=== PATIENT | female | born 1965 | race Hispanic/Latino ===

== ENCOUNTER → 2019-02-08 | Outpatient (CLI) | payer MEDICARE | END | disposition home or self-care (01) | LOC: SHCH 09:10 | PROVIDERS: ATTEND Internal Medicine Cardiovascular Disease | DX: I08.1 Rheumatic disorders of both mitral and tricuspid valves (principal) | CPT/HCPCS: 93306 ==

== ENCOUNTER → 2019-02-27 | Outpatient (CLI) | payer MEDICARE ==
[~2019-02-27] VITALS: Ht 157.5 cm; Wt 75.7 kg
[~2019-02-27] MED LIST: ALBU8.5H8 IH; ASPI-555 PO; ATOR40TA71 PO; BUME1TAB6 PO; CALC-866 PO; CLOP75TA32 PO; ESOM40CA PO; FLUO20TA29 PO; GABA-529 PO; INSU100I3 SQ; INSU100V12 SQ; LOSA25TA41 PO; METO2.5T2 PO; METO25TA6 PO; REGADENOSON 0.4 MG/5 ML PF SYG IVP SCH; TRAM50TA4 PO
== END | disposition home or self-care (01) ==
LOC: SHCH 07:45
PROVIDERS: ATTEND Internal Medicine Cardiovascular Disease
DX: R94.39 Abnormal result of other cardiovascular function study (principal); I25.5 Ischemic cardiomyopathy
CPT/HCPCS: 78481; A9512

== ENCOUNTER 2019-03-23 10:47 | Observation (INO) | payer MEDICARE ==
[2019-03-21 11:31] LABS: BASOPHILS % (AUTO) 0.5 % (0.0-5.0); EOSINOPHILS % (AUTO) 0.2 % (0.0-8.0); LYMPHOCYTES % (AUTO) 25.6 % (21.0-51.0); MEAN CORPUSCULAR HEMOGLOBIN 30.6 pg (27.0-33.0); MEAN CORPUSCULAR HGB CONC 33.6 g/dL (32.0-36.0); MEAN CORPUSCULAR VOLUME 91.2 fL (79-99); MONOCYTES % (AUTO) 7.3 % (3.0-13.0); NEUTROPHILS % (AUTO) 66.4 % (40.0-77.0); PLATELET COUNT (AUTO) 246 K/uL (130-400); RED BLOOD CELL COUNT(AUTO) 3.84 MIL/uL (4.00-5.50); RED CELL DISTRIBUTION WIDTH 13.4 % (11.0-15.5); WHITE BLOOD COUNT (AUTO) 4.7 K/uL (4.8-10.8)
[2019-03-21 11:34] VITALS: BP 141/82
[2019-03-21 11:59] LABS: POTASSIUM 4.7 mmol/L (3.5-5.1)
[2019-03-21 12:00] LABS: INR 1.07 (0.85-1.15); PROTHROMBIN TIME 11.2 SEC (9.6-11.6)
[2019-03-21 12:11] LABS: CREATININE 1.9 mg/dL (0.5-1.5)
--- NOTE | 2019-03-21 12:24 | NUR ---
GLUCOSE INFORMED AMI RODRIGUEZ OF PTS GLUCOSE OF 464. SHE WILL INFORM DR. DAN.
--- NOTE | 2019-03-22 09:53 | NUR ---
labs informed ling hopper of abnormal bun/crea. she will inform dr. rock. as per glucose yesterday, just recheck glucose fasting on am of procedure
[~2019-03-23] VITALS: Ht 154.9 cm; Wt 71.2 kg
[2019-03-23] VITALS (8 sets, daily range): BP systolic 91–129; BP diastolic 55–82
[~2019-03-23 10:47] MED LIST changes: +CEFAZOLIN SODIUM 1 GM VIAL IVP SCH; -REGADENOSON 0.4 MG/5 ML PF SYG IVP SCH; +SODIUM CHLORIDE 0.9% 1000ML 1,000 ML IV SCH; -TRAM50TA4 PO
[2019-03-23] MEDS ORDERED: MEPERIDINE-PF 25 MG/ML SYG ONE ×2 (13:52→14:21)
[2019-03-23] MEDS ORDERED: BUPIVACAINE/PF 0.25% 30ML VIAL IJ ONE (13:52)
[2019-03-23] MEDS ORDERED: MIDAZOLAM HCL 1 MG/ML 2ML VIAL ONE ×2 (13:52→14:21)
[2019-03-23] MEDS ORDERED: CEFAZOLIN SODIUM 1 GM VIAL ONE (13:52)
[2019-03-23] MEDS ORDERED: LIDOCAINE HCL 1% MDV 50ML VIAL ONE (13:53)
[2019-03-23] MEDS ORDERED: IOHEXOL-350 50ML VIAL IV ONE (14:33)
[2019-03-23] MEDS ORDERED: METOLAZONE 2.5 MG TABLET PO SCH (15:30)
[2019-03-23] MEDS: INSULIN LISPRO 100 UNIT/ML 3ML SQ SCH (17:51)
[2019-03-23] MEDS: ALBUTEROL SULFATE 0.083% 2.5 MG/3 ML INH IH SCH (18:39)
[2019-03-23] MEDS: ACETAMINOPHEN-CODEINE 300/30MG TAB PO PRN ×2 (18:47→23:08)
--- NOTE | 2019-03-23 20:19 | NUR ---
ASSESSMENT PATIENT IS RESTING IN BED. ALERT AND ORIENTED X4. S/P AICD PLACEMENT TO LEFT UPPER CHEST COMPLAINTS OF DISCOMFORT AND JUST RECEIVED PRN MEDICATIONS FOR PAIN. SITE IS CLEAN, DRY, AND INTACT. FAMILY IS AT BEDSIDE. CALL LIGHT WITHIN REACH. NO QUESTIONS, CONCERNS, OR NEEDS AT THIS TIME. PATIENT REINFORCED TO CALL FOR ANY NEEDS.
[2019-03-23] MEDS ORDERED: ATORVASTATIN CALCIUM 40 MG TABLET PO SCH (21:00)
[2019-03-23] MEDS: GABAPENTIN 100 MG CAPSULE PO SCH (21:59)
[2019-03-23] MEDS: METOPROLOL TARTRATE 25 MG TAB PO SCH (21:59)
[2019-03-23] MEDS: INSULIN GLARGINE 100 UNITS/ML 10 ML VIAL SQ SCH (22:06)
[2019-03-24 04:00] VITALS: BP 93/60
[2019-03-24] MEDS: ACETAMINOPHEN-CODEINE 300/30MG TAB PO PRN ×2 (06:23→10:35)
[2019-03-24] MEDS: ALBUTEROL SULFATE 0.083% 2.5 MG/3 ML INH IH SCH ×2 (06:49→10:19)
[2019-03-24 07:00] VITALS: BP 106/61
--- NOTE | 2019-03-24 07:30 | NUR ---
ASSESSMENT ENCOUNTERED PT A&OX3, CALM COOPERATIVE AND DOES NOT APPEAR TO BE IN ANY DISTRESS NOR ANY NEURO DEFICITS PRESENT. PT DENIES SOB, NAUSEA BUT DOES C/O INCISIONAL PAIN TO LEFT SHOULDER, DRESSING DRY, INTACT AND SECURED WITH ARM SLING. PULSES AND PLASTICATOR STRENGTH STRONG, PT IS AMBULATORY, GAIT STEADY AND STRONG WITH STAND BY ASSIST. CALL LIGHT WITHIN REACH, FAMILY AT BEDSIDE.
[2019-03-24] MEDS: GABAPENTIN 100 MG CAPSULE PO SCH (08:38)
[2019-03-24] MEDS: METOPROLOL TARTRATE 25 MG TAB PO SCH (08:38)
[2019-03-24] MEDS: INSULIN LISPRO 100 UNIT/ML 3ML SQ SCH (08:40)
[2019-03-24] MEDS: INSULIN GLARGINE 100 UNITS/ML 10 ML VIAL SQ SCH (08:47)
[2019-03-24] MEDS ORDERED: BUMETANIDE 1 MG TAB PO SCH (09:00)
[2019-03-24] MEDS ORDERED: CHOLECALCIFEROL 5000 UNIT PO SCH (09:00)
[2019-03-24] MEDS ORDERED: PANTOPRAZOLE SODIUM 40 MG TABLET.DR PO SCH (09:00)
[2019-03-24] MEDS ORDERED: CLOPIDOGREL BISULFATE 75 MG TAB PO SCH (09:00)
[2019-03-24] MEDS ORDERED: LOSARTAN 50 MG TABLET PO SCH (09:00)
[2019-03-24] MEDS ORDERED: ASPIRIN 81 MG EC TAB PO SCH (09:00)
[2019-03-24] MEDS ORDERED: FLUOXETINE HCL 20 MG CAPSULE PO SCH (09:00)
[2019-03-24] MEDS ORDERED: KETOROLAC TROMETHAMINE 30MG/ML IV SCH (10:00)
[2019-03-24] MEDS ORDERED: TRAM50TA4 PO (10:13)
[2019-03-24 11:00] VITALS: BP 91/54
--- NOTE | 2019-03-24 13:00 | NUR ---
DISCHARGE INSTRUCTIONS GIVEN, PIV REMOVED AND INTACT, DISCHARGED HOME TO FAMILY VEHICLE VIA WHEELCHAIR.
== END 2019-03-24 12:55 | disposition home or self-care (01) ==
LOC: DAH 10:47 → DAHIP 10:48 → DAH 10:48 → 2AH 15:55
PROVIDERS: ADMIT Internal Medicine; ATTEND Internal Medicine
DX: I25.5 Ischemic cardiomyopathy (principal); I21.09 ST elevation (STEMI) myocardial infarction involving other coronary artery of anterior wall; I13.0 Hypertensive heart and chronic kidney disease with heart failure and stage 1 through stage 4 chronic kidney disease, or unspecified chronic kidney disease; E11.22 Type 2 diabetes mellitus with diabetic chronic kidney disease; I50.23 Acute on chronic systolic (congestive) heart failure; N18.3 Chronic kidney disease, stage 3 (moderate); N17.9 Acute kidney failure, unspecified; E78.5 Hyperlipidemia, unspecified; Z89.421 Acquired absence of other right toe(s); Z98.51 Tubal ligation status; Z79.82 Long term (current) use of aspirin; Z79.899 Other long term (current) drug therapy; Z88.8 Allergy status to other drugs, medicaments and biological substances
CPT/HCPCS: 33249; 36415; 71045; 80048; 82948 ×5; 85025; 85610; 85730; 93005; 94640 ×3; 94664; 96372 ×2; 96374; A4215; A4216; A4221; A4222; A4223 ×3; A4606; A4663; C1721; C1895 ×2; G0378 ×21; J0690; J1885; J2175 ×2; J2250 ×2; J3490 ×2; J7030; Q9967; 99156; 99157

== ENCOUNTER → 2021-09-19 | Outpatient (CLI) | payer OTHER, MEDICARE ==
[~2021-09-19] MED LIST changes: -ASPI-555 PO; +ASPI-556 PO; -CEFAZOLIN SODIUM 1 GM VIAL IVP SCH; -SODIUM CHLORIDE 0.9% 1000ML 1,000 ML IV SCH; +TRAM50TA4 PO
== END | disposition home or self-care (01) ==
LOC: SHCH 09:40
PROVIDERS: ATTEND Internal Medicine Cardiovascular Disease
DX: I87.2 Venous insufficiency (chronic) (peripheral) (principal)
CPT/HCPCS: 93970

== ENCOUNTER → 2021-11-03 | Outpatient (CLI) | payer OTHER, MEDICARE | END | disposition home or self-care (01) | LOC: SHCH 09:23 | PROVIDERS: ATTEND Internal Medicine Cardiovascular Disease | DX: I87.2 Venous insufficiency (chronic) (peripheral) (principal); Z98.890 Other specified postprocedural states | CPT/HCPCS: 93971 ==

== ENCOUNTER → 2021-12-24 | Outpatient (CLI) | payer OTHER, MEDICARE | END | disposition home or self-care (01) | LOC: RAH 11:01 | PROVIDERS: ATTEND Internal Medicine Gastroenterology | DX: R14.0 Abdominal distension (gaseous) (principal) | CPT/HCPCS: 78264; A9541 ==

== ENCOUNTER 2022-01-20 06:57 | Day surgery (SDC) | payer OTHER, MEDICARE ==
[2022-01-15 15:20] LABS: BASOPHILS % (AUTO) 0.4 % (0.0-5.0); EOSINOPHILS % (AUTO) 2.4 % (0.0-8.0); HEMATOCRIT 35.8 % (36-48); LYMPHOCYTES % (AUTO) 28.9 % (21.0-51.0); MEAN CORPUSCULAR HEMOGLOBIN 30.4 pg (27.0-33.0); MEAN CORPUSCULAR HGB CONC 32.4 g/dL (32.0-36.0); MONOCYTES % (AUTO) 4.9 % (3.0-13.0); PLATELET COUNT (AUTO) 226 K/uL (130-400); RED BLOOD CELL COUNT(AUTO) 3.81 MIL/uL (4.00-5.50); RED CELL DISTRIBUTION WIDTH 13.8 % (11.0-15.5); WHITE BLOOD COUNT (AUTO) 5.5 K/uL (4.8-10.8)
[2022-01-15 15:20] LABS: APPEARANCE,URINE CLEAR (CLEAR); BILIRUBIN,URINE NEGATIVE (NEGATIVE); COLOR,URINE YELLOW (YELLOW); GLUCOSE, URINE (UA) 500 mg/dL (NEGATIVE); KETONES,URINE NEGATIVE (NEGATIVE); LEUKOCYTE ESTERASE ,URINE NEGATIVE (NEGATIVE); NITRATE,URINE NEGATIVE (NEGATIVE); OCCULT BLOOD,URINE TRACE-INTACT (NEGATIVE); PROTEIN,URINE >=300 mg/dL (NEGATIVE); UROBILINOGEN,URINE 0.2 mg/dL (0.2-1.0)
[2022-01-15 15:27] LABS: CREATININE 2.1 mg/dL (0.5-1.5); POTASSIUM 4.9 mmol/L (3.5-5.1)
[2022-01-15 15:30] LABS: INR 1.05 (0.85-1.15); PROTHROMBIN TIME 11.4 SEC (9.6-11.6)
[2022-01-15 15:32] LABS: PARTIAL THROMBOPLASTIN TIME 25.9 SEC (26.3-35.5)
[2022-01-15 15:46] LABS: BACTERIA,URINE Few /HPF (None Seen); MUCUS,URINE Few LPF (None Seen); SQUAMOUS EPITHELIAL CELL,UR Few /HPF (0-2)
[2022-01-15 15:48] LABS: B-TYPE NATRIURETIC PEPTIDE 255 pg/mL (0-100)
[2022-01-19 10:18] VITALS: BP 149/73
[~2022-01-20] VITALS: Ht 157.5 cm; Wt 68.7 kg
[~2022-01-20 06:57] MED LIST changes: +0.9% NACL 500ML IV.SOLN 500 ML IV SCH; -ALBU8.5H8 IH; -ATOR40TA71 PO; -CALC-866 PO; +CLON1TAB12 PO; +DIVA500T52 PO; -ESOM40CA PO; +FLUT100D2 IH; -INSU100I3 SQ; +INSU100V SQ; -INSU100V12 SQ; +LINA72CA PO; -LOSA25TA41 PO; -METO2.5T2 PO; +ONDA-104 PO; +PANT40TA54 PO; +PRIM50TA23 PO; +[UNRECOGNIZED DRUG - CODE] PO
[2022-01-20 07:33] LABS: CREATININE 2.6 mg/dL (0.5-1.5)
== END 2022-01-20 11:30 | disposition home or self-care (01) ==
LOC: DAH 06:57
PROVIDERS: ATTEND Internal Medicine Cardiovascular Disease
DX: I20.0 Unstable angina (principal); I20.9 Angina pectoris, unspecified; Z91.040 Latex allergy status; Z79.01 Long term (current) use of anticoagulants; Z53.8 Procedure and treatment not carried out for other reasons
CPT/HCPCS: 36415; 80048; 81001; 82948; 83880; 85025; 85610; 85730